=== PATIENT | female | born 1935 | race Caucasian/White ===

== ENCOUNTER 2023-06-09 13:27 | Outpatient (CLI) | payer MEDICARE, SELFPAY ==
[2023-06-09 19:02] LABS: Parathyroid Intact 39.7 pg/mL (7.5-53.5)
[2023-06-09 20:09] LABS: Vitamin D 25 Hydroxy 76.8 ng/mL
[2023-06-12 17:10] LABS: Ionized Calcium 5.3 mg/dL (4.7-5.5)
== END 2023-06-09 13:28 | disposition home or self-care (01) ==
PROVIDERS: PCP Family Medicine; Visit Provider Family Medicine
DX: E55.9 Vitamin D deficiency, unspecified (principal)
CPT/HCPCS: 36415; 82306; 82330; 83970